=== PATIENT | female | born 1965 | race African-American/Black ===

== ENCOUNTER 2017-08-10 11:47 | Emergency (ER) | payer OTHER ==
[2017-08-10 12:00] VITALS: BP 145/94; PULSE 73; TEMP 98; BMI 22.4
[2017-08-10] MEDS ORDERED: KETOROLAC TROMETHAMINE 60 MG/2 ML VIAL IM ONE (12:55)
--- NOTE | 2017-08-10 13:02 | PDOC ---
History of Present Illness - General Chief Complaint: Chronic pain Stated Complaint: NECK PROBLEM Time Seen by Provider: 08/10/17 12:15 History Source: Patient Exam Limitations: No Limitations - History of Present Illness Initial Comments: 08/10/17 12:57 Patient is a 51-year-old female with history of chronic neck pain spinal fusion , currently under the care of chronic pain management was unable to reach them today. Patient states worsened pain to left lateral neck radiating down left arm for three days. Denies a no injury. There is no neurosensory deficits. Past Medical History: Lupus, Fibromyalgia, CVA, HTN Allergies: No known allergies Medications: [See Medicaiton list] Family History: Non-contributory Social History: Denies smoking, alcohol use, or IVDU Review of Systems GENERAL/CONSTITUTIONAL: [No fever or chills. No weakness. No weight change.] HEAD, EYES, EARS, NOSE AND THROAT: [No change in vision. No ear pain or discharge. No sore throat. ] CARDIOVASCULAR: [No chest pain or shortness of breath.] RESPIRATORY: [No cough, wheezing, or hemoptysis.] GASTROINTESTINAL: [No nausea, vomiting, diarrhea or constipation. No rectal bleeding.] GENITOURINARY: [No dysuria, frequency, or change in urination.] MUSCULOSKELETAL: [No joint or muscle swelling or pain. No back pain, left lateral neck pain. SKIN : [No rash or easy bruising.] NEUROLOGIC: [No headache, vertigo, loss of consciousness, or loss of sensation.] PSYCHIATRIC: [No depression or anxiety.] ENDOCRINE: [No increased thirst. No abnormal weight change.] HEMATOLOGIC/LYMPHATIC: [No anemia, easy bleeding, or history of blood clots.] ALLERGIC/IMMUNOLOGIC: [No hives or skin allergy. No latex allergy.] Physical Exam: GENERAL: [The patient is awake, alert, and fully oriented, in no acute distress. ] HEAD: [Normal with no signs of trauma.] EYES: [Pupils equal, round and reactive to light, extraocular movements intact, sclera anicteric, conjunctiva clear.] ENT: [Ears normal, nares patent, oropharynx clear without exudates. Moist mucous membranes. No uvula deviation] NECK: [Normal range of motion, supple without lymphadenopathy, JVD, or masses. No spinal point tenderness, there is pain to the trapezius on palpation, spasm. ] LUNGS: [Breath sounds equal, clear to auscultation bilaterally. No wheezes, and no crackles.] HEART: [Regular rate and rhythm, normal S1 and S2 without murmur, rub or gallop. ] ABDOMEN: [Soft, nontender, normoactive bowel sounds. No guarding, no rebound. No masses. No bruising or abrasions] RECTAL : [Guaiac negative, normal rectal tone.] MUSCULOSKELETAL: [Normal range of motion, no edema. No clubbing or cyanosis. No cords, erythema, or tenderness. No CVA Tenderness with fist.] NEUROLOGICAL: [Cranial nerves II through XII grossly intact. Normal speech, normal gait.] PSYCH: [Normal mood, normal affect.] SKIN: [Warm, Dry, normal turgor, no rashes or lesions noted.] 08/10/17 12:59 08/10/17 13:08 Past History - Past Medical History Allergies/Adverse Reactions: Allergies Allergy/AdvReac Type Severity Reaction Status Date / Time Sulfa (Sulfonamide Allergy Verified 08/10/17 11:56 Antibiotics) Home Medications: Ambulatory Orders Acyclovir 5% Cream [Zovirax 5% Cream -] 1 applic TP ASDIR #0 08/10/14 Amlodipine Bes/Olmesartan Med [Shaan 10-20 mg Tablet] 1 each PO DAILY #0 Aspirin Coated [Ecotrin -] 81 mg PO DAILY #30 tablet.ec 08/10/14 Azathioprine [Imuran -] 100 mg PO BID #0 08/10/14 Baclofen 10 mg PO TID #0 08/10/14 Hydrocortisone 1% Cream [Hytone 1% Cream -] 1 applic TP BID #0 08/10/14 Hypromellose 0.5% Opth Soln [Artificial Tears] 2 drop OU Q4H PRN #30 drops 08/10 Montelukast Na [Singulair -] 10 mg PO HS #0 08/10/14 Nortriptyline HCl [Pamelor -] 75 mg PO TID #0 08/10/14 Oxycodone HCl/Acetaminophen [Percocet 10-325 mg Tablet] 1 - 2 tab PO Q6H #0 Pantoprazole Sodium [Protonix -] 40 mg PO DAILY #30 tablet.ec 08/10/14 Prednisone [Deltasone -] 30 mg PO DAILY #7 tablet 08/10/14 Rabeprazole Sodium [Aciphex] 20 mg PO DAILY #0 08/10/14 Zolpidem Tartrate [Ambien] 10 mg PO HS #30 tablet 08/10/14 Diazepam [Valium] 5 mg PO Q8H PRN #15 tablet MDD 3 03/14/16 Oxycodone HCl/Acetaminophen [Percocet 5-325 mg Tablet] 1 - 2 combo PO Q4H PRN # 20 tablet MDD 12 03/14/16 Anemia: Yes Asthma: No Cancer: No Cardiac Disorders: Yes (CAD) CVA: Yes COPD: No CHF: No DVT: No Dementia: No Diabetes: No GI Disorders: No Disorders: No HTN: Yes Hypercholesterolemia: No Liver Disease: No Seizures: No Thyroid Disease: ("thyroid disease") Other medical history: lupus, neck and back chronic pain - Surgical History Abdominal Surgery: No Appendectomy: No Cardiac Surgery: No Cholecystectomy: No Lung Surgery: No Neurologic Surgery: No Orthopedic Surgery: (spinal fusion / neck sx) - Suicide/Smoking/Psychosocial Hx Smoking History: Never smoked Have you smoked in the past 12 months: No Information on smoking cessation initiated: Yes Hx Alcohol Use: No Drug/Substance Use Hx: No Substance Use Type: None Hx Substance Use Treatment: No *Physical Exam - Vital Signs Last Vital Signs Temp Pulse Resp BP Pulse Ox 98.0 F 73 18 145/94 100 08/10/17 11:57 08/10/17 11:57 08/10/17 11:57 08/10/17 11:57 08/10/17 11:57 Medical Decision Making - Medical Decision Making 08/10/17 13:02 A/P: Patient here for evaluation of chronic left neck pain and 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 I have called her doctor, I spoke to Dr. Heaton he will see patient tomorrow at 9:45 AM I will give her Toradol 60 mg IM while in emergency department and patient will follow-up tomorrow. I will give injection monitor for 20 minutes then DC. *DC/Admit/Observation/Transfer Diagnosis at time of Disposition: Chronic pain Qualifiers: Chronic pain type: chronic pain syndrome Qualified Code(s): G89.4 - Chronic pain syndrome - Discharge Dispostion Disposition: HOME Condition at time of disposition: Stable Admit: No - Referrals Referrals: Harinder Woodruff MD [Primary Care Provider] - - Patient Instructions Printed Discharge Instructions: Chronic Neck Pain Additional Instructions: Please follow up in the office of your chronic pain specialist tomorrow in [place] at 9:45 am. - Post Discharge Activity Forms/Work/School Notes: Back to Work
[2017-08-10] MEDS ORDERED: KETOROLAC TROMETHAMINE 60 MG/2 ML VIAL ONE (13:08)
== END 2017-08-10 14:25 | disposition home or self-care (01) ==
LOC: JERFT 11:47
PROC: 3E0233Z Introduction of Anti-inflammatory into Muscle, Percutaneous Approach (ICD-10-PCS; principal; 2017-08-10)
DX: G89.4 Chronic pain syndrome (principal)
CPT/HCPCS: 99281-25

== ENCOUNTER 2017-11-02 22:29 | Emergency (ER) | payer OTHER ==
[2017-11-02 22:54] VITALS: BP 161/87; PULSE 68; TEMP 98.4; BMI 22.9
--- NOTE | 2017-11-03 00:10 | PDOC ---
History of Present Illness - General Chief Complaint: Injury Stated Complaint: FINGER INJURY Time Seen by Provider: 11/02/17 23:59 History Source: Patient Exam Limitations: No Limitations - History of Present Illness Initial Comments: CHIEF COMPLAINT: 51 y/o female c/o dislocation to right 4th digit. HISTORY OF PRESENT ILLNESS: Patient states she was messing around with her foster daughter when she fell and dislocated the ring finger of her right hand. She states the finger bent sideways but she put it back into place. She now has pain and swelling in the affected area. She denies numbness/tingling. She can move the finger but with pain. Patient is right handed. Vital signs on arrival are within normal limits. REVIEW OF SYSTEMS: GENERAL/CONSTITUTIONAL: No fever/chills MUSCULOSKELETAL: +right 4th digit dislocation. No neck or back pain. SKIN: No rash or easy bruising. NEUROLOGIC: No headache, vertigo, loss of consciousness, or loss of sensation. PHYSICAL EXAM: VITAL_SIGNS: within normal limits GENERAL_APPEARANCE: alert, cooperative, no obvious discomfort. MENTAL_STATUS: speech clear, oriented X 3, responds appropriately to questions. NEURO: motor intact and sensory intact in injured extremity. EXTREMITIES: good pulse in injured extremity. swelling and TTP of right 4th PIP joint without deformity. Pain with flexion of both PIP and DIP joint of affected finger. SKIN: warm, dry, good color. Past History - Past Medical History Allergies/Adverse Reactions: Allergies Allergy/AdvReac Type Severity Reaction Status Date / Time Sulfa (Sulfonamide Allergy Verified 11/02/17 22:53 Antibiotics) Home Medications: Ambulatory Orders Acyclovir 5% Cream [Zovirax 5% Cream -] 1 applic TP ASDIR #0 08/10/14 Amlodipine Bes/Olmesartan Med [Shaan 10-20 mg Tablet] 1 each PO DAILY #0 Aspirin Coated [Ecotrin -] 81 mg PO DAILY #30 tablet.ec 08/10/14 Azathioprine [Imuran -] 100 mg PO BID #0 08/10/14 Baclofen 10 mg PO TID #0 08/10/14 Hydrocortisone 1% Cream [Hytone 1% Cream -] 1 applic TP BID #0 08/10/14 Hypromellose 0.5% Opth Soln [Artificial Tears] 2 drop OU Q4H PRN #30 drops 08/10 Montelukast Na [Singulair -] 10 mg PO HS #0 08/10/14 Nortriptyline HCl [Pamelor -] 75 mg PO TID #0 08/10/14 Oxycodone HCl/Acetaminophen [Percocet 10-325 mg Tablet] 1 - 2 tab PO Q6H #0 Pantoprazole Sodium [Protonix -] 40 mg PO DAILY #30 tablet.ec 08/10/14 Rabeprazole Sodium [Aciphex] 20 mg PO DAILY #0 08/10/14 Zolpidem Tartrate [Ambien] 10 mg PO HS #30 tablet 08/10/14 predniSONE [Deltasone -] 30 mg PO DAILY #7 tablet 08/10/14 Diazepam [Valium] 5 mg PO Q8H PRN #15 tablet MDD 3 03/14/16 Oxycodone HCl/Acetaminophen [Percocet 5-325 mg Tablet] 1 - 2 combo PO Q4H PRN # 20 tablet MDD 12 03/14/16 Anemia: Yes Asthma: No Cancer: No Cardiac Disorders: Yes (CAD) CVA: Yes COPD: No CHF: No DVT: No Dementia: No Diabetes: No GI Disorders: No Disorders: No HTN: Yes Hypercholesterolemia: No Liver Disease: No Seizures: No Thyroid Disease: ("thyroid disease") Other medical history: MS, fibromyalgia - Surgical History Abdominal Surgery: No Appendectomy: No Cardiac Surgery: No Cholecystectomy: No Lung Surgery: No Neurologic Surgery: No Orthopedic Surgery: (spinal fusion / neck sx) - Suicide/Smoking/Psychosocial Hx Smoking History: Never smoked Have you smoked in the past 12 months: No Information on smoking cessation initiated: No Hx Alcohol Use: No Drug/Substance Use Hx: No Substance Use Type: None Hx Substance Use Treatment: No *Physical Exam - Vital Signs Last Vital Signs Temp Pulse Resp BP Pulse Ox 98.4 F 68 17 161/87 100 11/02/17 22:49 11/02/17 22:49 11/02/17 22:49 11/02/17 22:49 11/02/17 22:49 Medical Decision Making - Medical Decision Making A/P: 51 y/o female with right 4th digit dislocation. Patient put the finger back into place herself. Plan is as follows: 1. Xray right finger Xray right finger IMPRESSION: No fracture or dislocation. Patient was given results. Put her affected finger into a finger splint and wrapped with AYANA bandage. Instructed her to use splint for 2 week and apply ice to help with swelling and pain. The patient has prescription pain medication at home that she states she will use for pain. Instructed her to return to the ER with any worsening or concerning symptoms. The patient verbalizes understanding of all instructions, has no further questions and is awaiting discharge. *DC/Admit/Observation/Transfer Diagnosis at time of Disposition: Finger dislocation Qualifiers: Encounter type: initial encounter Qualified Code(s): S63.259A - Unspecified dislocation of unspecified finger, initial encounter - Discharge Dispostion Disposition: HOME Condition at time of disposition: Good - Referrals Referrals: Harinder Woodruff MD [Primary Care Provider] - - Patient Instructions Printed Discharge Instructions: DI for Finger Dislocation, How To Perform RICE (Rest, Ice, Compress, Elevate) Additional Instructions: Discharge Instructions: -Please use finger splint for 2 weeks -Apply ice to affected area to help with swelling and pain -Take your prescribed pain medication at home -Return to the ER with any worsening or concerning symptoms - Post Discharge Activity
== END 2017-11-03 02:25 | disposition home or self-care (01) ==
LOC: JER 22:29
PROC: 2W3JX1Z Immobilization of Right Finger using Splint (ICD-10-PCS; principal; 2017-11-02)
DX: S63.284A Dislocation of proximal interphalangeal joint of right ring finger, initial encounter (principal); W19.XXXA Unspecified fall, initial encounter; Y93.83 Activity, rough housing and horseplay; Y92.038 Other place in apartment as the place of occurrence of the external cause; Y99.8 Other external cause status
CPT/HCPCS: 73140-TC-RT-FY; 99281-25

== ENCOUNTER 2020-11-15 12:09 | Emergency (ER) | payer OTHER ==
[2020-11-15 12:40] VITALS: BP 150/96; PULSE 99; TEMP 98.9; BMI 22.4
[2020-11-15] MEDS ORDERED: ONDANSETRON *ODT* 4 MG TABLET SL ONE (12:55)
[2020-11-15] MEDS ORDERED: KETOROLAC TROMETHAMINE 15 MG/ML VIAL IM ONE (12:55)
[2020-11-15] MEDS ORDERED: LIDOCAINE 5% TOPICAL PATCH TP ONE (12:55)
[2020-11-15] MEDS ORDERED: LIDOCAINE 5% TOPICAL PATCH ONE (12:58)
[2020-11-15] MEDS ORDERED: KETOROLAC TROMETHAMINE 15 MG/ML VIAL ONE (12:59)
[2020-11-15] MEDS ORDERED: ONDANSETRON *ODT* 4 MG TABLET ONE (12:59)
[2020-11-15] MEDS ORDERED: LIDOCAINE PATCH REMOVAL MC SCH (22:00)
== END 2020-11-15 13:11 | disposition home or self-care (01) ==
LOC: JERFT 12:09
PROC: 3E0233Z Introduction of Anti-inflammatory into Muscle, Percutaneous Approach (ICD-10-PCS; principal; 2020-11-15)
DX: M54.2 Cervicalgia (principal)
CPT/HCPCS: 99284-25; Q0162

== ENCOUNTER 2021-04-07 14:27 | Emergency (ER) | payer OTHER ==
[2021-04-07 14:35] VITALS: BP 130/91; PULSE 98; TEMP 97.9; BMI 23.4
[2021-04-07] MEDS ORDERED: ACETAMINOPHEN 325 MG TABLET (FP) PO ONE (15:14)
[2021-04-07] MEDS ORDERED: ONDANSETRON *ODT* 4 MG TABLET SL ONE (15:15)
[2021-04-07] MEDS ORDERED: ONDANSETRON *ODT* 4 MG TABLET ONE (16:13)
[2021-04-07] MEDS ORDERED: ACETAMINOPHEN 325 MG TABLET (FP) ONE (16:13)
== END 2021-04-07 18:48 | disposition home or self-care (01) ==
LOC: JER 14:27
DX: S09.90XA Unspecified injury of head, initial encounter (principal); W20.8XXA Other cause of strike by thrown, projected or falling object, initial encounter
CPT/HCPCS: 70450-TC; 99283-25; Q0162

== ENCOUNTER 2023-06-18 11:49 | Emergency (ER) | payer OTHER ==
[2023-06-18 12:03] VITALS: BP 145/82; PULSE 83; RESP 19; TEMP 98.5; BMI 20.7
[2023-06-18] MEDS ORDERED: LIDOCAINE 5% TOPICAL PATCH TP ONE ×2 (12:48→14:13)
[2023-06-18] MEDS ORDERED: ACETAMINOPHEN 500 MG TABLET (FP) PO ONE (12:48)
[2023-06-18] MEDS ORDERED: LIDOCAINE 4% PATCH TP ONE ×2 (12:58→14:12)
[2023-06-18] MEDS ORDERED: ACETAMINOPHEN 325 MG TABLET (FP) ONE (12:59)
[2023-06-18 13:55] LABS: EPI CELLS >36 /uL (0-25.1); HYALINE CASTS 9 /uL (0-3.1); URINE APPEARANCE CLEAR; URINE BACTERIA 395 /uL (0-1359); URINE BILIRUBIN 1+ (NEGATIVE); URINE COLOR DK YELLOW; URINE GLUCOSE (UA) NEGATIVE (NEGATIVE); URINE KETONE TRACE (NEGATIVE); URINE LEUK ESTERASE NEGATIVE (NEGATIVE); URINE NITRITE NEGATIVE (NEGATIVE); URINE PROTEIN 1+ (NEGATIVE); URINE WBC 37 /uL (0-25.8)
[2023-06-18 14:02] LABS: POTASSIUM 4.2 mmol/L (3.5-5.1)
[2023-06-18 14:08] LABS: ALBUMIN 3.7 g/dl (3.4-5.0); BLOOD UREA NITROGEN 13.8 mg/dL (7-18); CALCIUM 8.8 mg/dL (8.5-10.1)
[2023-06-18 14:13] LABS: BILIRUBIN,TOTAL 0.3 mg/dL (0.2-1); TOT PROT 7.2 g/dl (6.4-8.2)
[2023-06-18] MEDS ORDERED: KETOROLAC TROMETHAMINE 30 MG/1 ML VIAL IM ONE (14:13)
[2023-06-18] MEDS ORDERED: KETOROLAC TROMETHAMINE 30 MG/1 ML VIAL ONE (14:13)
[2023-06-18 15:25] LABS: URINE RBC 26.5 /uL (0-23.9); YEAST FEW (NEGATIVE)
[2023-06-18] MEDS ORDERED: LIDOCAINE PATCH REMOVAL MC ONE (22:00)
[2023-06-18] MEDS ORDERED: LIDOCAINE PATCH REMOVAL MC SCH (22:00)
== END 2023-06-18 14:00 | disposition home or self-care (01) ==
LOC: JERFT 11:49
PROC: 3E0233Z Introduction of Anti-inflammatory into Muscle, Percutaneous Approach (ICD-10-PCS; principal; 2023-06-18)
DX: M54.42 Lumbago with sciatica, left side (principal); G89.29 Other chronic pain
CPT/HCPCS: 36415; 80053; 81003; 87086; 99284-25

== ENCOUNTER 2024-04-03 12:58 | Emergency (ER) | payer OTHER ==
[2024-04-03 13:10] VITALS: BP 148/86; PULSE 92; RESP 16; TEMP 98.2; BMI 22.4
[2024-04-03] MEDS ORDERED: ONDANSETRON *ODT* 4 MG TABLET ONE (14:06)
[2024-04-03] MEDS ORDERED: LIDOCAINE 4% PATCH TP ONE (14:06)
[2024-04-03] MEDS: ONDANSETRON *ODT* 4 MG TABLET SL ONE (14:10)
[2024-04-03] MEDS: LIDOCAINE 4% PATCH TP ONE (14:10)
[2024-04-03] MEDS ORDERED: LIDOCAINE PATCH REMOVAL MC SCH (22:00)
== END 2024-04-03 16:01 | disposition home or self-care (01) ==
LOC: JERFT 12:58
DX: M25.511 Pain in right shoulder (principal); M25.531 Pain in right wrist
CPT/HCPCS: 73030-TC-RT-FY; 99283-25; Q0162